=== PATIENT | male | born 1980 | race Caucasian/White ===

== ENCOUNTER 2024-11-12 19:17 | Emergency (ER) | payer BC, SELFPAY ==
[2024-11-12 19:20] VITALS: BP 150/90; PULSE 92; TEMP 36.9; O2SAT 99; BMI 35.0
--- NOTE | 2024-11-12 19:36 | ED_ITS ---
HPI - Male Genitourinary General Chief complaint: Urogenital-Male Stated complaint: groin pain Time Seen by Provider: 11/12/24 19:20 Source: patient Mode of arrival: walk-in Limitations: no limitations History of Present Illness HPI Narrative: Patient is a 44-year-old male presents to the ER with concerns of irritation to the skin on the head of his penis. Patient states he had hernia surgery 2 weeks ago on the left lower Abdomen Which he feels is going well. States he has had issues with yeast infections in the past. Patient states he was last treated in September for similar symptoms noting redness to the glans of his penis with slight whitish discharge from around the soft tissues he denies any discharge from the urethral meatus. No history of genital herpes reported. Patient states he is not immediately concerned regarding potential sexually transmitted disease. He was using Vagsil otc for the past few days hoping it would improve if it was yeast. Admits to purchasing and online Balanitis cream to use over the counter, but burned when he applied it and discontinued use. He has not been sexually active with recent surgery. Pt reprots having Diflucan in the past with good relief at times and other times symptoms persisting. MD Complaint: Denies testicle pain, testicle swelling, penile discharge, genital injury or possible STD exposure Duration: Reports constant Location: Reports penis and left inguinal region (post surgical soreness); Denies right testicle or left testicle Related Data Sexually active: Yes Previous Rx's ?Medication ?Instructions ?Recorded clotrimazole 1 % topical cream 1 applic topical BID 2 weeks #30 11/12/24 grams mupirocin 2 % topical ointment 1 applic topical BID 7 days #22 11/12/24 grams Allergies Allergy/AdvReac Type Severity Reaction Status Date / Time No Known Drug Allergies Allergy Verified 11/12/24 19:26 Review of Systems ROS Constitutional Denies: fever, chills or change in weight Eyes Denies: change in vision or blurry vision Ears, nose, mouth, and throat Denies: throat pain, neck pain, throat swelling, difficulty swallowing or hoarseness Cardiovascular Denies: chest pain, palpitations or edema Respiratory Denies: shortness of breath, cough or wheezing Gastrointestinal Denies: abdominal pain, nausea or vomiting Genitourinary Reports: other (left groin post op soreness); Denies: painful urination, urinary frequency or urinary urgency Musculoskeletal Denies: back pain or neck pain Integumentary/Breast Reports: rash, itching and redness (glands of penis with minimal swelling or distal foreskin, easily retracts) Neurological Denies: headache Psychiatric Denies: anxiety or mood swings Endocrine Denies: excessive urination or excessive thirst Hematologic/Lymphatic Denies: easy bruising PFSH PFSH Social History Little interest or pleasure in doing things: not at all Feeling down, depressed, or hopeless: not at all Exam Narrative Exam Narrative: Nurses notes and vital signs reviewed and patient is not hypoxic. General: The patient appears well and in no apparent distress. Patient is resting comfortably on cart. Skin: Warm, dry, no pallor noted. Postsurgical incision left inguinal canal appears well-healing no warmth or erythema Steri-Strips are present. No drainage or discharge. Minimal induration concerning for seroma but no tenderness around the incision. Head: Normocephalic, atraumatic Neck: Supple, trachea mid-line, no tenderness, no lymphadenopathy Eye: Pupils are equal, round and reactive to light, EOMI Cardiovascular: Regular Rate and Rhythm Respiratory: Patient is in no distress, no accessory muscle use, lungs are clear to auscultation, no wheezing, rales or rhonchi. Chest Wall: no tenderness Back: non-tender, no CVA tenderness : Uncircumcised male examined supine with erythema noted the glans of his penis and there is some swelling to the very distal aspect of his foreskin there is some mild milky discharge around the glans but not emanating from the urethral opening. Testicles are nontender and unremarkable on inspection. No erythema in the groin folds. GI: Normal bowel sounds, no tenderness to palpation, no masses appreciated. No rebound, guarding, or rigidity noted. Neurological: A&O x4 Psychiatric: Cooperative Constitutional Vital Signs, click to edit/add: Last Vital Signs Temp 98.4 F 11/12/24 19:20 Pulse 92 H 11/12/24 19:20 Resp 18 11/12/24 19:20 BP 150/90 H 11/12/24 19:20 Pulse Ox 99 11/12/24 19:20 O2 Del Method Room Air 11/12/24 19:20 Course Vital Signs Vital signs: Vital Signs Temperature 98.4 F 11/12/24 19:20 Pulse Rate 92 H 11/12/24 19:20 Respiratory Rate 18 11/12/24 19:20 Blood Pressure 150/90 H 11/12/24 19:20 Pulse Oximetry 99 11/12/24 19:20 Oxygen Delivery Method Room Air 11/12/24 19:20 Temperature 98.4 F 11/12/24 19:20 Pulse Rate 92 H 11/12/24 19:20 Respiratory Rate 18 11/12/24 19:20 Blood Pressure 150/90 H 11/12/24 19:20 Pulse Oximetry 99 11/12/24 19:20 Oxygen Delivery Method Room Air 11/12/24 19:20 MDM - Male Genitourinary MDM Narrative Medical decision making narrative: Patient reports having this being a recurrent problem last treated was in September. Patient notes before his surgery he was doing well. He initially denied any concern for STD and then later requested from the nurse that we added to his urine sample. I specifically spoke with after this request regarding his concern for sexually transmitted diseases. We discussed the utility of a urethral swab versus urinalysis. Patient feels he is low risk we discussed the numerous sexually transmitted diseases and a simple urine sample was not enough to further evaluate all the causes. He is encouraged to follow-up with his PCP to discuss his risk profile and more importantly his medications which may be contributing to his recurrent symptoms patient verbalized understanding. States that he was sexually active shortly after his hernia surgery and noted symptoms shortly after this. He is unsure but feels he may have received IV antibiotics with his procedure as well. We discussed that he has multiple factors going towards his balanitis diagnosis with concerns predominantly of yeast. He admits to using mupirocin cream in the past without relief we discussed that if his symptoms are fungal the antibacterial cream would likely not improve his sy mptoms he is encouraged to continue using the antifungal cream until symptoms are completely gone and then continue using for a few more days. Then he may practice continued hygiene with intermittent soaking. We discussed that he is not safe to submerge his left inguinal postsurgical incision but he may use a cup to soak his glans of his penis within a solution daily for 2 weeks. He is agreeable to oral Diflucan pill here as his pharmacy is closed with prescriptions for both medications were sent to his pharmacy. He is given local urologist for follow-up and advises he plans to keep appointment with Dr. Dinero on Wednesday. The patient is to followup with primary care physician/ Dr. Dinero/ Urology in next 2-3 days or to return to the emergency department should any of the signs or symptoms worsen or new symptoms develop. Patient had questions answered. The patient agrees with the following Diagnosis and Treatment plan and the patient will be discharged home. Lab Data Labs: Lab Results 11/12/24 Range/Units 19:39 Urine Color Lt. yellow (YELLOW) Urine Clarity Clear (CLEAR) Urine pH 6.0 (5.0-9.0) Ur Specific [place] 1.015 (1.005-1.025) Urine Protein Negative (NEG/TRACE) mg/dL Urine Glucose (UA) >=1000 A (NEGATIVE) mg/dL Urine Ketones Negative (NEGATIVE) mg/dL Urine Occult Blood Negative (NEGATIVE) Urine Nitrite Negative (NEGATIVE) Urine Bilirubin Negative (NEGATIVE) Urine Urobilinogen 0.2 (0.2-1.0) EU/dL Ur Leukocyte Esterase Negative (NEGATIVE) Urine RBC None seen (0-2) #/HPF Urine WBC 0-2 A (NONE SEEN) #/HPF Ur Squamous Epith Cells Rare (NONE/RARE) #/LPF Urine Crystals None seen (None Seen) #/HPF Urine Bacteria None seen (NONE SEEN) #/HPF Urine Casts None seen (NONE SEEN) #/LPF Urine Mucus None seen (NONE SEEN) Ur Culture Indicated? No Discharge Plan Discharge Chief Complaint: Urogenital-Male Clinical Impression: Balanitis Patient Disposition: Home, Self-Care Time of Disposition Decision: 19:36 Condition: Good Prescriptions / Home Meds: New mupirocin 2 % ointment 1 applic topical BID 7 Days Qty: 22 1RF clotrimazole 1 % cream 1 applic topical BID 14 Days Qty: 30 1RF Print Language: Upper Sorbian Instructions: Delfina (ED) Additional Instructions: Dr. Henok Mac [phone] Urology- [facility] Referrals: Emmanuel Christina MD [Physician] - 1 week HENOK MAC [Physician] - As soon as possible Discharge Date/Time: 11/12/24 20:27
[2024-11-12 19:46] LABS: Bilirubin Urine NEGATIVE (NEGATIVE); Blood Urine NEGATIVE (NEGATIVE); Clarity Urine CLEAR (CLEAR); Color Urine LT. YELLOW (YELLOW); Glucose Urine UA >=1000 mg/dL (NEGATIVE); Ketones Urine NEGATIVE (NEGATIVE); Leukocyte Esterase Urine NEGATIVE (NEGATIVE); Nitrite Urine NEGATIVE (NEGATIVE); Protein Urine NEGATIVE (NEG/TRACE); Specific Gravity Urine 1.015 (1.005-1.025); Urobilinogen Urine 0.2 EU/dL (0.2-1.0)
[2024-11-12 19:48] LABS: Urine Microscopic Indicated YES
[2024-11-12 19:54] LABS: Bacteria Urine NONE SEEN #/HPF (NONE SEEN); Cast Seen? NONE SEEN #/LPF (NONE SEEN); Crystals Seen? None Seen #/HPF (None Seen); Mucus Urine NONE SEEN (NONE SEEN); RBC Urine NONE SEEN #/HPF (0-2); Squamous Epithelial Cell Urine RARE #/LPF (NONE/RARE); Urine Culture Indicated NO; WBC Urine 0-2 #/HPF (NONE SEEN)
[2024-11-12] MEDS: FLUCONAZOLE 150 MG TABLET PO (19:57)
[2024-11-15 05:07] LABS: Neisseria gonorrhoeae, NAA Negative (Negative)
== END 2024-11-12 20:27 | disposition home or self-care (01) ==
PROVIDERS: Personal Emergency Response Attendant; Emergency Provider Emergency Medicine; PCP Nurse Practitioner
DX: N48.1 Balanitis (principal); Z98.890 Other specified postprocedural states
CPT/HCPCS: 81001; 87491; 87591; 99283